=== PATIENT | female | born 1995 | race Hispanic/Latino ===

== ENCOUNTER 2016-09-23 15:24 | Emergency (ER) | payer OTHER ==
[2016-09-23 15:28] VITALS: O2SAT 100
[2016-09-23 15:29] VITALS: BMI 21.6
[2016-09-23] MEDS ORDERED: Sodium Chloride 0.9% 1,000 ML IV STA (15:49)
[2016-09-23 16:21] LABS: BASO # 0.1 K/uL (0.0-0.2); BASO % 0.8 % (0.0-2.0); HEMATOCRIT 39.4 % (34.0-47.0); LYMPH # 1.1 K/uL (1.0-4.3); LYMPH % 12.6 % (20.0-40.0); MEAN CELL VOLUME 91.2 fl (81.0-99.0); MEAN CORPUSCULAR HEMOGLOBIN 32.7 pg (27.0-31.0); MEAN CORPUSCULAR HGB CONC 35.8 g/dL (33.0-37.0); MEAN PLATELET VOLUME 8.7 fl (7.2-11.7); MONO # 0.6 K/uL (0.0-0.8); MONO % 6.7 % (0.0-10.0); NEUT % 79.9 % (50.0-75.0); NRBC % 0.7 % (0.0-0.0); RED CELL DISTRIBUTION WIDTH 12.5 % (11.5-14.5); WHITE BLOOD COUNT 8.7 K/uL (4.8-10.8)
--- NOTE | 2016-09-23 16:30 | ED PDOC ---
HPI:Nausea, Vomiting, Diarrhea Time Seen by Provider: 09/23/16 15:33 Chief Complaint (Nursing): GI Problem Chief Complaint (Provider): Nausea, Vomiting History Per: Patient History/Exam Limitations: no limitations Onset/Duration Of Symptoms: Days (today) Current Symptoms Are (Timing): Still Present Have you had recent travel within the past 21 days to any of the following countries: [place], [place], [place] or [place]?: No Severity: Moderate Associated Symptoms: Vomiting (non-bloody). denies: Other (no headache, abdominal pain) Additional Complaint(s): Carolyn Mota is a 21 year old female, with no pertinent past medical history, who presents to the ED on 09/23/16 for the evaluation of nausea and 10+ episodes of non-bloody vomiting that she has experienced since waking up this morning, further stating that she has been unable to tolerate anything PO and has been "seeing spots" in her visual shanks. Patient admits to recent alcohol ingestion, stating that between 22:00 and 02:00 last night she had had 5+ drinks. She also reports having taken her usual Adderall medication this morning , though she denies any additional drug use. Further denies headache, abdominal pain or suicidal/homicidal ideation. PMD: Jadiel King Past Medical History Reviewed: Historical Data, Nursing Documentation, Vital Signs Vital Signs: Last Vital Signs Temp 98.1 F 09/23/16 15:26 Pulse 87 09/23/16 15:26 Resp 18 09/23/16 15:26 BP 126/75 09/23/16 15:26 Pulse Ox 100 09/23/16 15:26 - Medical History PMH: No Chronic Diseases - Surgical History Surgical History: No Surg Hx - Family History Family History: States: Unknown Family Hx - Social History Alcohol: Social Drugs: Denies - Allergies Allergies/Adverse Reactions: Allergies Allergy/AdvReac Type Severity Reaction Status Date / Time No Known Allergies Allergy Verified 09/23/16 15:29 Review of Systems Eyes: Positive for: Other (seeing "spots" within visual shanks) Gastrointestinal: Positive for: Nausea, Vomiting (10+ episodes, non-bloody). Negative for: Abdominal Pain Neurological: Negative for: Headache Psych: Negative for: Suicidal ideation (no homicidal ideation) Physical Exam - Reviewed Nursing Documentation Reviewed: Yes Vital Signs Reviewed: Yes - Physical Exam Appears: Positive for: Non-toxic, No Acute Distress Head Exam: Positive for: ATRAUMATIC, NORMOCEPHALIC Skin: Positive for: Normal Color, Warm, Dry Eye Exam: Positive for: Normal appearance, PERRL ENT: Positive for: Normal ENT Inspection Cardiovascular/Chest: Positive for: Regular Rate, Rhythm. Negative for: Murmur Respiratory: Positive for: Normal Breath Sounds. Negative for: Respiratory Distress Gastrointestinal/Abdominal: Positive for: Normal Exam, Soft. Negative for: Tenderness Back: Positive for: Normal Inspection Neurologic/Psych: Positive for: Alert, Oriented - Laboratory Results Result Diagrams: 09/23/16 16:16 09/23/16 16:16 - ECG O2 Sat by Pulse Oximetry: 100 (RA) Pulse Ox Interpretation: Normal Medical Decision Making Medical Decision Makin:33 Initial Impression: dehydration secondary to binge alcohol consumption Initial Plan: * Labs * Alcohol Serum * Upreg * Udip * IV NS 1000ml at 500mls/hr * Reglan 10mg IVP * Toradol 30mg IVP * Reevaluation 18:15 Labs reviewed with no clinically significant abnormalities. Upon provider reevaluation patient reports feeling much improved. She is medically stable and requires no further treatment in the ED at this time. Patient will be discharged home. Counseling was provided and all questions were answered regarding diagnosis and need for follow up with her PMD. There is agreement to discharge plan. Return if symptoms persist or worsen. Clinical Impression: dehydration Scribe Attestation: Documented by Trista Carr, acting as a scribe for Bhavik Sanders MD. Provider Scribe Attestation: All medical record entries made by the Scribe were at my direction and personally dictated by me. I have reviewed the chart and agree that the record accurately reflects my personal performance of the history, physical exam, medical decision making, and the department course for this patient. I have also personally directed, reviewed, and agree with the discharge instructions and disposition. Disposition - Clinical Impression Clinical Impression: Hangover effect, Dehydration - Patient ED Disposition Is Patient to be Admitted: No Counseled Patient/Family Regarding: Studies Performed, Diagnosis, Need For Followup - Disposition Referrals: Francis Webb MD [Family Provider] - Disposition: Routine/Home Disposition Time: 18:15 Condition: STABLE Instructions: Dehydration (ED)
[2016-09-23 16:35] LABS: ALCOHOL SERUM < 10 mg/dl (0-10); BLOOD UREA NITROGEN 11 mg/dl (7-17); CARBON DIOXIDE 21 mmol/L (22-30); CHLORIDE 106 mmol/L (98-107); GFR AFRICAN-AMERICAN > 60; GLUCOSE,RANDOM 97 mg/dL (65-105); SODIUM 145 mmol/l (132-148)
[2016-09-23 19:33] VITALS: BP 128/78; PULSE 78; RESP 20; TEMP 97.6
== END 2016-09-23 19:33 | disposition home or self-care (01) ==
LOC: H.ER 15:24
DX: R11.2 Nausea with vomiting, unspecified (principal); F10.129 Alcohol abuse with intoxication, unspecified; E86.0 Dehydration